=== PATIENT | female | born 1950 | race Caucasian/White ===

== ENCOUNTER → 2021-09-17 12:19 | Outpatient (CLI) | payer MEDICARE, SELFPAY ==
--- NOTE | 2021-09-23 08:35 | P.PFT.S_ITS ---
Pulmonary Function Test Referral & Results Date Patient Seen: 09/17/21 Requesting provider: Santo Palacios Indication: COPD Results: The spirometry demonstrates an FVC of 2.77 L which is 96% of predicted. The FEV1 was measured at 2.05 L which is 94% of predicted. The FEV1/FVC ratio was 74 which is 98% of predicted. Following the administration of bronchodilator there was a 20% improvement in FEF 25-75% Lung volumes show an SVC of 2.98 L which is 106% of predicted. The diffusing capacity was measured at 18.04 which is 74% of predicted. No hemoglobin value was provided, so no correction for potential anemia could be made, if appropriate. The maximum voluntary ventilation was normal Interpretation: This study demonstrates probably normal pulmonary function. Spirometry was certainly normal, however there may be a minimal reduction in diffusing capacity suggesting the possibility of disease at the capillary alveolar level unless pat ient is anemic as above. Clinical correlation suggested
== END ==
PROVIDERS: PCP Student in an Organized Health Care Education/Training Program; Referring Provider Student in an Organized Health Care Education/Training Program; Visit Provider Student in an Organized Health Care Education/Training Program
DX: J44.9 Chronic obstructive pulmonary disease, unspecified (principal); Z87.891 Personal history of nicotine dependence
CPT/HCPCS: 94060; 94726; 94729